=== PATIENT | female | born 1945 | race Caucasian/White ===

== ENCOUNTER → 2024-04-08 13:06 | Outpatient (REF) | payer MEDICARE, BC, SELFPAY | LOC: RAD 13:06 | PROVIDERS: ATTENDING PHYSICIAN Family Medicine | DX: Z13.6 Encounter for screening for cardiovascular disorders (principal) | CPT/HCPCS: 75571 ==

== ENCOUNTER → 2024-04-16 10:55 | Outpatient (REF) | payer MEDICARE, BC, SELFPAY | LOC: RAD 10:55 | PROVIDERS: ATTENDING PHYSICIAN Family Medicine | DX: I77.810 Thoracic aortic ectasia (principal) | CPT/HCPCS: 71260; Q9967 ==

== ENCOUNTER → 2024-08-16 08:27 | Outpatient (REF) | payer MEDICARE, BC, SELFPAY | LOC: WDC 08:27 | PROVIDERS: ATTENDING PHYSICIAN Family Medicine | DX: Z12.31 Encounter for screening mammogram for malignant neoplasm of breast (principal) | CPT/HCPCS: 77063; 77067 ==

== ENCOUNTER 2024-11-07 17:20 | Inpatient (IN) | payer MEDICARE, OTHER, SELFPAY ==
[2024-11-07] VITALS (21 sets, daily range): BP systolic 102–168; BP diastolic 58–93; PULSE 75; BMI 23.8
[2024-11-07 04:21] LABS: % Basophils 0.3 % (0-2); % Eosinophils 0.1 % (0-6); % Immature Granulocytes 0.5 % (0-0.5); % Lymphocytes 8.3 % (20.5-51.1); % Neutrophils 85.8 % (42.2-75.2); Absolute Immature Granulocytes 0.1 10^3/uL (0-0.05); Absolute Lymphocytes 0.8 10^3/uL (1.2-3.4); Absolute Monocytes 0.5 10^3/uL (0.1-0.6); Absolute Neutrophils 7.8 10^3/uL (1.4-6.5); Hematocrit 35.8 % (37.0-47.0); Hemoglobin 12.2 g/dL (12.0-16.0); Mean Corp Hgb Conc. 34.1 g/dL (33.0-37.0); Mean Corpuscular Hgb 31.9 pg (27.0-31.0); Mean Corpuscular Volume 93.7 fL (81.0-99.0); Mean Platelet Volume 8.5 fL (7.4-10.4); Nucleated Red Blood Cells % 0 %; Platelet Count 199 10^3/uL (130-400); Red Blood Cell Count 3.82 10^6/uL (4.20-5.40); Red Cell Dist. Width 13.2 % (11.5-14.5); White Blood Cell Count 9.2 10^3/uL (4.8-10.8)
[2024-11-07 04:43] LABS: ALT (SGPT) 20 U/L (0-35); AST (SGOT) 29 U/L (14-36); Albumin 4.1 g/dl (3.5-5.0); Alkaline Phosphatase 64 U/L (38-126); Blood Urea Nitrogen 20 mg/dl (7-17); Calcium 9.1 mg/dl (8.4-10.2); Carbon Dioxide 26 mmol/L (22-30); Chloride 99 mmol/L (98-107); Estimated Creatinine Clearance 49 ml/min; Glucose 118 mg/dl (70-99); Potassium 3.4 mmol/L (3.5-5.1); Sodium 133 mmol/L (135-145); Total Bilirubin 0.5 mg/dl (0.2-1.3); Total Protein 6.9 g/dl (6.3-8.2); eGFR > 60.00
[2024-11-07 05:08] LABS: Urine Albumin 1+ (Neg - Trace); Urine Bilirubin Negative (Negative); Urine Character Clear (Clear); Urine Color Yellow; Urine Glucose Negative (Negative); Urine Ketone 2+ (Negative); Urine Leukocyte Negative (Negative); Urine Nitrite Negative (Negative); Urine Occult Blood 1+ (Negative); Urine Urobilinogen Negative (Neg - 1+)
--- NOTE | 2024-11-07 05:15 | ED.GENMED ---
History of Present Illness
General
Chief Complaint: Abdominal Pain
Source: patient
Exam Limitations: none
Time Seen by Provider: 11/07/24 05:06
Nursing documentation reviewed up to this point in time: agreed with
History of Present Illness
History of Present Illness:
This is a 79-year-old woman who has history of of hypertension, asthma, obstructive sleep apnea, spinal stenosis. She presents with initially generalized lower abdominal pain that began around 9 PM last night, pain has persisted, comes and goes in
waves and is now primarily located right side of her abdomen. She admits to moderate nausea but has had no vomiting. She also notes urinary frequency, having had to get up and void several times throughout the night which is unlike her. She
denies hematuria, denies dysuria, denies back nor flank pain. She has not had a fever nor chills. She passed a normal bowel movement at 5 PM last night.
She has not taken anything for discomfort.
No history of similar episodes of pain.
Past History
Past History
ED Past Medical History: Asthma, HTN and Other (Obstructive sleep apnea, spinal stenosis)
ED Past Surgical History: (X 2), Gynecological (Bilateral salpingo-oophorectomy 2014) and Orthopedic (Bilateral hip replacements)
Social History
Tobacco: Non-smoker
Alcohol: None
Drug: None
Personal:
Living: alone
Employment: Retired
Family History
Family History: Other (Noncontributory)
Phy Exam
Physical Exam
Physical Exam:
GENERAL: 79-year-old woman appears her stated age, bright alert, pleasant, appears in no acute distress. Easily communicative.
EYE: anicteric
NECK: Supple, nontender, no meningismus, no significant adenopathy.
ENT: oral mucosa is moist. No rhinorrhea.
CARDIAC: Regular rate and rhythm. no murmur.
LUNGS: Clear breath sounds bilaterally, no acute respiratory distress, no wheezes/rales/rhonchi
ABDOMEN: Soft, nondistended, moderate tenderness right upper quadrant as well as mild tenderness right lower quadrant, no r/g, no cvat. Mildly hyperactive bowel sounds.
NEUROLOGICAL: Alert and oriented x3, no focal neuro deficits. Gait is steady.
SKIN: Warm and dry, normal color, skin intact. No rash.
MUSCULOSKELETAL: No C/C/E. peripheral pulses are full and equal b/l. No palpable tenderness.
PSYCH: Normal and appropriate interaction.
Course
Orders/Labs/Results
Orders:
Orders
11/07/24 04:07
Complete Blood Count/With Diff Urgent
Comprehensive Metabolic Panel Urgent
Lipase Urgent
Comment: ADD ON
11/07/24 04:52
Urinalysis Reflex To Culture Urgent
Date Specimen was Collected: 11/07/24
Time Specimen was Collected: 04:06
Urine Microscopic Reflex Cult Urgent
11/07/24 05:13
0.9% Sodium Chloride 1000 ml [Nss] 1,000 ml IV BOLUS
Ketorolac [Toradol] 15 mg IV NOW STA
Ondansetron Injectable [Zofran] 4 mg IV NOW STA
11/07/24 05:14
Add On- LAB Urgent
Tests Added?: lipase
11/07/24 05:16
CT Abd/pelvis W Iv Cont Urgent
Comment:
Reason For Exam: acute gen right sided abd pain, nausea
11/07/24 Breakfast
NPO
Allow oral meds: Yes
NPO Except Meds: Yes
Allow clear liquids: No
Sips of clear liquids: No
11/07/24 06:09
Lactic Acid Urgent
11/07/24 06:58
Iohexol [Omnipaque] See Protocol PO NOW STA
11/07/24 06:59
CT Abd/pel (oral only)-[facility] Only Urgent
Comment:
Reason For Exam: right sided abd pain-(?)appy
11/07/24 07:00
Iohexol [Omnipaque] 50 ml .ROUTE .STK-MED ONE
11/07/24 07:07
Ondansetron Injectable [Zofran] 4 mg IV Q6HPRN PRN
11/07/24 Lunch
NPO
Allow oral meds: Yes
NPO Except Meds: Yes
Allow clear liquids: Sips of Clears
NPO with Ice Chips: Yes
Sips of clear liquids: Yes
11/07/24 13:49
Ertapenem [Invanz] 1,000 mg 0.9% Sodium Chloride [Nss] 50 ml IV PRE PROCEDURE
Surgical Procedure As Directed
Surgical Procedure: open right colectomy
11/07/24 13:50
Anti-embolism (VAL) Hose As Directed
Type: Knee high
Pneumatic Compression Sleeves As Directed
Type: Knee high
DX Deep Vein Thrombosis Video Routine
11/07/24 14:05
Type+Screen Urgent
PTT Urgent
Prothrombin Time Urgent
11/07/24 14:48
Bupivacaine 0.5%Pf/Epinephrin [Sensorcain-Mpf Epi 0.5%-0.0005] 30 ml .ROUTE .STK-MED ONE
Dexamethasone Pf [Decadron] 10 mg .ROUTE .STK-MED ONE
11/07/24 14:53
Dexamethasone Sod Phosphate [Decadron] 20 mg .ROUTE .STK-MED ONE
Lidocaine HCl/Pf [Xylocaine-Mpf 1% Vial] 50 mg .ROUTE .STK-MED ONE
Ondansetron Injectable [Zofran] 4 mg .ROUTE .STK-MED ONE
Rocuronium [place] [Rocuronium] 100 mg .ROUTE .STK-MED ONE
11/07/24 14:55
Fentanyl Citrate/Pf [Sublimaze] 100 mcg .ROUTE .STK-MED ONE
Midazolam HCl [Versed] 2 mg .ROUTE .STK-MED ONE
11/07/24 15:06
Fentanyl Citrate/Pf [Sublimaze] 25 mcg IV PACU-Q5MPRN PRN
Fentanyl Citrate/Pf [Sublimaze] 50 mcg IV PACU-Q5MPRN PRN
Meperidine [Demerol] 12.5 mg IV PACU-Q5MPRN PRN
Ondansetron Injectable [Zofran] 4 mg IV PACU-ONCEPRN PRN
Prochlorperazine [Compazine] 5 mg IV PACU-ONCEPRN PRN
Notify MD As Directed
Notify physician if: for SDS patients with known or suspected sleep obstructive sleep apnea, monitor in the
PACU.
Notify MD for any apneic/desaturation episodes
O2 Therapy [RESP] Urgent
Titrate/Wean O2 to maintain O2 sat greater than (%): 92
Special Instructions: -Provide supplemental oxygen to achieve O2 sat of 92% or greater.
-After 15 min, may wean O2 and discontinue if patient is able to maintain O2 sat of 92%
or greater during recovery period.
If patient is a discharge home, without oxygen therapy, notify anestheiologist if
unable to maintain O2 SAT of 92% or greater on room air for MD clearance.
11/07/24 15:15
Normosol (Mult Electrolytes) [Normosol-R/Plasmalyte-A] 1,000 ml IV PER PROTOCOL
11/07/24 15:39
OR Pathology Routine
Pre-Operative Diagnosis: CECAL VOLVULUS
Post-Operative Diagnosis: CECAL VOLVULUS
Operative Procedure: OPEN RIGHT COLECTOMY
Surgeon: PORSHA
Circulating Nurse: [id number]
Specimen Type: RIGHT COLON
11/07/24 15:53
HYDROmorphone [Dilaudid] 1 mg .ROUTE .STK-MED ONE
11/07/24 16:52
Sugammadex Sodium [Bridion] 200 mg .ROUTE .STK-MED ONE
11/07/24 16:59
Ketorolac [Toradol] 30 mg .ROUTE .STK-MED ONE
11/07/24 17:10
Admit Patient As Directed
Co-Sign Provider:
Level of Care: Inpatient admission
Assign to:: Medical/Surgical
Physician / Group: porsha
Diagnosis: cecal volvulus; s/p right colectomy
Reason for Hospitalization: cecal volvulus; s/p right colectomy
Expected length of stay greater than two midnights?: Yes
ELOS- Estimated Length of Stay in days: 5
I certify the patient meets the requirements for IP care: Yes
Code Status As Directed
Resuscitation Status: Full Code
Activity As Directed
Activity Level: Out of Bed- Ad Franca
Anti-embolism (VAL) Hose As Directed
Type: Knee high
Catheter- Indwelling As Directed
Reason for insertion: Fabiola-Op Remove POD #2
Intake/ Output As Directed
Frequency: Per unit guidelines
Pneumatic Compression Sleeves As Directed
Type: Knee high
Vital Signs As Directed
Frequency: Post-operative guidelines
Weight As Directed
Frequency: Daily
PRN Pain Medication Management As Directed
May give lesser potent ordered pain med per pt: Yes
preference::
Protocol:: Medication orders for pain may be administered in a
manner that supports deferring to patient preference
when the pt is:
- Requesting an ordered lesser potent pain medication.
Least to most potent pain medications are defined
as: acetaminophen < NSAID < tramadol < opioids
(morphine, oxycodone, hydromorphone).
- Requesting a lesser dose of the same medication IF
ORDERED.
- Requesting a less intrusive route of administration
if both routes are prescribed by the provider (PO <
IV).
Rx Incentive Spirometry [RESP] Routine
Frequency: q1h while awake
# of times per hour: 10
DX Deep Vein Thrombosis Video Routine
11/07/24 17:12
HYDROmorphone [Dilaudid] 0.25 mg IV Q4HPRN PRN
HYDROmorphone [Dilaudid] 0.5 mg IV Q4HPRN PRN
11/07/24 17:15
Normosol (Mult Electrolytes) [Normosol-R/Plasmalyte-A] 1,000 ml IV 80 mls/hr
11/07/24 20:00
Acetaminophen [Tylenol] 650 mg PO Q4HWA
11/07/24 23:00
Ketorolac [Toradol] 10 mg IV Q6H
11/08/24 04:25
Basic Metabolic Panel IN AM
Complete Blood Count/With Diff IN AM
Magnesium IN AM
11/08/24 08:00
Amlodipine [Norvasc] 2.5 mg PO DAILY
Pantoprazole [Protonix] 40 mg PO DAILY
Abnormal Lab Results
11/07/24 11/07/24
04:07 04:52
RBC 3.82 L 10^6/uL
(4.20-5.40)
Hct 35.8 L %
(37.0-47.0)
MCH 31.9 H pg
(27.0-31.0)
Abs Immat Gran (auto) 0.1 H 10^3/uL
(0-0.05)
Absolute Neuts (auto) 7.8 H 10^3/uL
(1.4-6.5)
Absolute Lymphs (auto) 0.8 L 10^3/uL
(1.2-3.4)
Neutrophils % 85.8 H %
(42.2-75.2)
Lymphocytes % 8.3 L %
(20.5-51.1)
Sodium 133 L mmol/L
(135-145)
Potassium 3.4 L mmol/L
(3.5-5.1)
BUN 20 H mg/dl
(7-17)
Glucose 118 H mg/dl
(70-99)
Urine Ketones 2+ A
(Negative)
Ur Occult Blood Reflex 1+ A
(Negative)
Urine RBC 3-6 A /HPF
(0-2)
Urine Bacteria (Reflex) Few A
(Negative)
Urine Albumin (Reflex) 1+ A
(Neg - Trace)
11/07/24 04:07
11/07/24 04:07
Vital Signs
Initial and Last Documented VS:
Initial Vital Signs
Temp
97.4 F
11/07/24 03:59
Last Documented Vital Signs
Temp Pulse Resp BP Pulse Ox
98.4 F 69 18 154/82 95
11/08/24 23:00 11/08/24 23:00 11/08/24 23:00 11/08/24 23:00 11/08/24 23:00
MDM/Problems Addressed
Differential Diagnosis Includes:
Concern for acute cholecystitis, pancreatitis, small bowel obstruction, appendicitis, diverticulitis, other consideration is UTI, ureteric stone, pyelonephritis.
Will medicate for pain and nausea, initiate IV fluids.
Thus far labs are unremarkable. Will add lipase. Urinalysis is pending.
Will check CT abdomen pelvis with IV contrast.
Chronic conditions affecting care: HTN and Previous abdomnial surgery
*Radiology
Radiology exam reviewed: radiology read reviewed
*Pulse Oximetry
Patient hypoxic: no
*Critical Care Note
Total Time (30-74mins, 75-104mins- exclusive of procedures): Not Applicable
Update Note
Update Note:
07:00
Patient feeling improved but continues with some right mid to right lower quadrant abdominal pain.
Labs are reassuring. Normal white blood cell count. Normal chemistries. Normal lactic acid.
CAT scan shows constipation, there is some mesenteric inflammatory stranding right hemiabdomen concerning for focal inflammation/infection. Unclear if this is a focal enteritis versus I continued to have some concern for potential early
appendicitis.
Will continue to observe in the ED, serial abdominal exams.
Will await our radiologist official CAT scan report and in the meantime we will have the patient's start drinking oral contrast in preparation for repeat CAT scan if necessary.
11:[address] with oral contrast concerning for cecal volvulus.
Case d/w colorectal surgery.
to evaluate at bedside-plan for OR
ED Attending Note
-
Portions of this chart may have been created with voice recognition software.� Occasional wrong word or��sound alike� substitutions may have occurred due to the inherent limitations of voice recognition software.
Discharge Plan
Departure
Patient Disposition: OR
Date of Disposition: 11/07/24
Time of Disposition: 11:00
Admit to: OR
Admit to doctor: Porsha
Presentation/result/management discussed w/ accepting MD/DO: colorectal surgery
Discharge Problem:
acute right sided abdominal pain, Cecal volvulus
Interventions
Interventions:
*Risk Screen - Suicide Last Done: 11/07/24 03:59
*General Assessment Last Done: 11/07/24 03:59
*Neglect/Abuse Screening Last Done: 11/07/24 03:59
ED- Fall Risk Assessment Last Done: 11/07/24 03:59
*ED COVID-19 Vaccine History Last Done: 11/07/24 03:59
*Nursing Disposition Last Done: 11/07/24 14:47
AV-Wvifql-Mtenwzruip Assessment Last Done: 11/07/24 06:53
Discharge Date and Time
Discharge Date/Time: 11/07/24 14:49
[2024-11-07] MEDS: NSS 1000 IV (05:22)
[2024-11-07] MEDS: TORADOL 15 MG IV (05:22)
[2024-11-07 05:43] LABS: Urine Bacteria Few (Negative); Urine White Cell 0-2 /HPF (0-5)
[2024-11-07 05:46] LABS: Lipase 141 U/L (23-300)
[2024-11-07 06:32] LABS: Lactic Acid 0.7 mmol/L (0.7-2.0)
[2024-11-07] MEDS: OMNIPAQUE 50 ML PO (07:05)
--- NOTE | 2024-11-07 14:14 | EDRN ---
TEDS/ Sequential machine ordered from [facility]
[2024-11-07 14:37] LABS: INR 0.98; PT 13.5 Sec (11.4-14.6)
[2024-11-07 14:38] LABS: APTT 25.8 Sec (23.4-35.0)
--- NOTE | 2024-11-07 14:56 | W.PN.ADMIT ---
Progress Note - Admit
Progress Note - Admit
Full admit to be dictated.
Assessement/Plan: 79 yo F with R>L abdominal pain since yesterday evening with mild R abdominal tenderness on exam. CT scan most consistent with cecal volvulus with some mild inflammation and swirling of mesentery as well as displaced distended
mobile cecum. Interestingly, some oral contrast passes distal to area which may be consistent with partial obstruction. Discussed situation with patient, options discussed, and recommended a right colectomy to treat the issue and prevent worsening
of circumstances. Risks and benefits covered. Risks covered include but not limited to bleeding, infection, ureteral injury, bowel or solid organ injury, anastomotic leak or stricture, hernia, and anesthetic risks. She agrees to proceed. She
lives alone and has updated her daughters. She asks me to update them afterwards.
--- NOTE | 2024-11-07 17:07 | W.IMMPOSTOP ---
Addendum entered and electronically signed by King Da Silva MD 11/07/24 17:21:
Updated patient's daughter, Anamaria, via phone conversation.
Original Note:
Surgical Immed Post Op Note
-
Primary Surgeon: Sonido Da Silva MD
Assisting Surgeon: ANNA Hinson
Pre-op Diagnosis: cecal volvulus
Post-op Diagnosis: same
Procedure Performed: right colectomy
Anesthesia Type: general plus local
Specimen / Cultures: right colon
Estimated Blood Loss: 25 cc
Complications: no immediate
Operative Findings: cecal volvulus without upstream bowel dilation
Black in bladder.
Will send to med surg.
Sips, chips, and po meds ok.
[2024-11-07] MEDS: NORMOSOL-R/PLASMALYTE-A 1000 IV (17:20)
--- NOTE | 2024-11-07 21:10 | PTCARENOTE ---
Pt has midline incision [employer] with glue. IVF running at 80cc/hr and teds/scds on. Admission questions answered and full head to toe complete. Bed locked and in lowest position. Pt oriented to room and call miramontes. Care ongoing.
[2024-11-07] MEDS: TORADOL 10 MG IV (22:55)
[2024-11-08] MEDS: TYLENOL 650 MG PO ×5 (00:22→20:45)
[2024-11-08 03:05] VITALS: BP 137/72
[2024-11-08] MEDS: TYLENOL PO (04:54)
[2024-11-08] MEDS: TORADOL 10 MG IV ×4 (05:13→23:18)
[2024-11-08] MEDS: NORMOSOL-R/PLASMALYTE-A 1000 IV (05:24)
[2024-11-08 05:27] VITALS: BMI 22.7
[2024-11-08 06:20] LABS: % Basophils 0.1 % (0-2); % Immature Granulocytes 0.6 % (0-0.5); % Lymphocytes 10.1 % (20.5-51.1); % Monocytes 9.4 % (1.7-9.3); % Neutrophils 79.8 % (42.2-75.2); Absolute Immature Granulocytes 0.1 10^3/uL (0-0.05); Absolute Lymphocytes 1.1 10^3/uL (1.2-3.4); Absolute Neutrophils 8.6 10^3/uL (1.4-6.5); Hematocrit 32.4 % (37.0-47.0); Hemoglobin 11.3 g/dL (12.0-16.0); Mean Corp Hgb Conc. 34.9 g/dL (33.0-37.0); Mean Corpuscular Hgb 32.2 pg (27.0-31.0); Mean Corpuscular Volume 92.3 fL (81.0-99.0); Mean Platelet Volume 8.7 fL (7.4-10.4); Nucleated Red Blood Cells % 0 %; Platelet Count 204 10^3/uL (130-400); Red Blood Cell Count 3.51 10^6/uL (4.20-5.40); Red Cell Dist. Width 13.4 % (11.5-14.5); White Blood Cell Count 10.7 10^3/uL (4.8-10.8)
[2024-11-08 06:45] LABS: Blood Urea Nitrogen 18 mg/dl (7-17); Carbon Dioxide 20 mmol/L (22-30); Chloride 99 mmol/L (98-107); Estimated Creatinine Clearance 43 ml/min; Glucose 84 mg/dl (70-99); Magnesium 2.1 mg/dl (1.6-2.3); Potassium 3.7 mmol/L (3.5-5.1); Sodium 133 mmol/L (135-145); eGFR > 60.00
[2024-11-08 07:10] VITALS: BP 132/71
[2024-11-08] MEDS: NORVASC 2.5 MG PO (09:15)
[2024-11-08] MEDS: PROTONIX PO (09:16)
--- NOTE | 2024-11-08 09:27 | W.PN.CRS1 ---
Today's Communication / Plan
-
As below
Assessment/Plan
-
79-year-old female with PMH of asthma, HTN, ITZ, spinal stenosis who presented with abdominal pain and was found to have cecal volvulus on CT
POD 1 ex lap, right hemicolectomy
AFVSS
WBC 10.7, Hb 11.3 from 12.2, CR 0.8, UOP 900
� Advance to clears
� Continue pain control with Toradol, Tylenol, Dilaudid as needed
� Okay for DVT PPx with Lovenox
� DC Black, monitor for void
� Continue home meds
Subjective Data
Subjective Data
Date of Service: November 08, 2024
No overnight events.
Pain controlled.
Denies nausea/vomiting.
-flatus -BMs + Black
Objective Data
-
Vital Signs
Temp Pulse Resp BP Pulse Ox
98.9 F 66 16 132/71 98
11/08/24 07:10 11/08/24 07:10 11/08/24 07:10 11/08/24 07:10 11/08/24 07:10
Intake & Output
11/07/24 11/08/24 11/09/24
06:59 06:59 06:59
Intake Total 170 / 170
Output Total 900 / 900
Balance -730 / -730
Intake:
Oral fluids 120 / 120
IV fluids (Total) 50 / 50
Normosol 50 / 50
Output:
Urine, Black 900 / 900
Lab Results
11/08/24 04:25
11/08/24 04:25
Physical Exam
-
General: No Acute Distress and AOx3
HEENT: Grossly Normal
Abdomen: Soft, Non Distended, Tender (Appropriately tender near midline incision), No Guarding and No Rebound
Skin: Warm and Dry
Wound: No Signs of Infection, No Skin Erythema and Other (Midline incision well-approximated without erythema or drainage, covered in Dermabond)
--- NOTE | 2024-11-08 10:41 | CM ---
manager shop reviewed patient's chart and met with patient and patient states she lives alone in a 2 story home, patient is independent with adl's and ambulation, no dme, patient drives. Plan is to home when stable, patient asked about visiting
nurses and options reviewed and [facility] liaison notified.
Pharmacy: [facility] in [place]
Plan; Home with [facility] when stable.
[2024-11-08 11:10] VITALS: BP 158/85
--- NOTE | 2024-11-08 12:10 | VNURNOTE ---
Home Health Liaison met with patient at bedside to discuss [facility] nurse/therapy, visits, schedule and homebound status. Patient is agreeable and understands that visits at home will be 2-3 x per week to assess and teach medical management. Patient
is aware that [facility] will contact them for start of care in 1-2 days after discharge from .
[facility] referral completed in [facility].
[2024-11-08] MEDS: PROTONIX 40 MG PO (12:25)
[2024-11-08 15:40] VITALS: BP 159/94
[2024-11-08] MEDS: LOVENOX 40 MG SC (17:42)
[2024-11-08 23:00] VITALS: BP 154/82
[2024-11-09] MEDS: TYLENOL PO (00:06)
[2024-11-09] MEDS: TORADOL 10 MG IV (04:51)
[2024-11-09] MEDS: TYLENOL 650 MG PO ×3 (04:51→12:16)
[2024-11-09 06:00] VITALS: BMI 22.5
[2024-11-09 07:00] VITALS: BP 154/89
[2024-11-09] MEDS: PROTONIX 40 MG PO (09:04)
[2024-11-09] MEDS: NORVASC 2.5 MG PO (09:04)
--- NOTE | 2024-11-09 11:57 | W.PN.CRS1 ---
Today's Communication / Plan
-
low residue diet
possible d/c later today
Assessment/Plan
-
POD#2 right colectomy
AFVSS
no labs today
� Advance to low residue.
- D/C IVfs.
� Continue pain control with Toradol, Tylenol, Dilaudid as needed
� Okay for DVT PPx with Lovenox
� Continue home meds
- Possible d/c later today if tolerating a low residue diet.
Subjective Data
Procedure
11/07/24- right colectomy
Subjective Data
Date of Service: November 09, 2024
Patient states she feels well. She has bowel movements. Her pain is controlled. She tolerated fulls. She denies nausea or vomiting.
Objective Data
-
Vital Signs
Temp Pulse Resp BP Pulse Ox
98 F 63 18 154/89 99
11/09/24 07:00 11/09/24 07:00 11/09/24 07:00 11/09/24 07:00 11/09/24 07:00
Intake & Output
11/08/24 11/09/24 11/10/24
06:59 06:59 06:59
Intake Total 170 / 170 2260 / 2260
Output Total 900 / 900 300 / 300
Balance -730 / -730 1959 / 1960
Intake:
Oral fluids 120 / 120 1860 / 1860
IV fluids (Total) 50 / 50 400 / 400
Normosol 50 / 50
Output:
Urine, Black 900 / 900 300 / 300
Other:
Number of approximated MODERATE 2
amounts of urine
Lab Results
11/08/24 04:25
11/08/24 04:25
Physical Exam
-
General: No Acute Distress and AOx3
Abdomen: Soft, Non Distended and Non Tender
Skin: Warm and Dry
[2024-11-09 12:00] VITALS: BP 154/79
--- NOTE | 2024-11-09 12:06 | W.DS.TRANS ---
DC Summary - [employer]
-
Discharge Instructions:
Discharge Diagnosis/Procedures cecal volvulus
Diet Low Residue
Activity No strenuous activity
Additional Activity No lifting over 10lbs (gallon of milk)
Driving Restrictions Not until seen by your Dr
Bathing Restrictions OK to Shower
Wound Care Allow glue to naturally fall off.
Instructions: Low-fiber diet
Stand-Alone Forms:
Changes to Home Medications: No
Discharge Medications:
DC Medications w/original date entered in [employer]
Lactobac no.2-Bifidobac no.1-S. thermo 112.5 billion cell capsule (Visbiome) 1 cap PO DAILY 11/07/24
amino acids (Amino Acid capsule) 1 cap PO DAILY 11/07/24
amlodipine 2.5 mg tablet (Norvasc) 2.5 mg PO DAILY 11/07/24
ascorbic acid 30 mg-collagen, hydrolyzed 833.3 mg tablet (Collagen Skin Renewal) 1 tab PO DAILY 11/07/24
berberine chloride 500 mg capsule 500 mg PO DAILY 11/07/24
calcium carbonate 500 mg PO DAILY 11/07/24
cholecalciferol (vitamin D3) 125 mcg (5,000 unit) tablet (Vitamin D3) 125 mcg PO DAILY 11/07/24
creatine monohydrate 1 ea PO DAILY 11/07/24
omega-3 fatty acids 1,000 mg PO DAILY 11/07/24
therapeutic multivitamin 1 tab PO DAILY 11/07/24
vit C 250 mg-vit E 90 mg-zinc 40 mg-copper 1 bm-wrwyah-oepdol capsule 1 tab PO DAILY 11/07/24
vitamins A,C,J-bzaa-rpxeip 2,148 mcg-113 mg-45 mg-17.4 mg tablet (PreserVision AREDS) 1 tab PO DAILY 11/07/24
Home Medication Changes
Pending Results: Yes
Additional Pending Results:
OR pathology
[2024-11-09] MEDS: TORADOL IV (12:16)
== END 2024-11-09 13:58 | disposition home health service (06) | DRG 331 ==
LOC: 2 SOUTH 17:20
PROVIDERS: Physician Assistant; ADMITTING PHYSICIAN Surgery; EMERGENCY PHYSICIAN Emergency Medicine
PROC: 3E0T3BZ Introduction of Anesthetic Agent into Peripheral Nerves and Plexi, Percutaneous Approach (ICD-10-PCS; 2024-11-07)
PROC: 3E0T33Z Introduction of Anti-inflammatory into Peripheral Nerves and Plexi, Percutaneous Approach (ICD-10-PCS; 2024-11-07)
PROC: 5A09357 Assistance with Respiratory Ventilation, Less than 24 Consecutive Hours, Continuous Positive Airway Pressure (ICD-10-PCS; 2024-11-07)
PROC: 0DTF0ZZ Resection of Right Large Intestine, Open Approach (ICD-10-PCS; 2024-11-07)
DX: K56.2 Volvulus (principal); I10 Essential (primary) hypertension; E87.6 Hypokalemia; J45.909 Unspecified asthma, uncomplicated; G47.33 Obstructive sleep apnea (adult) (pediatric); R35.0 Frequency of micturition; Z60.2 Problems related to living alone; Z96.643 Presence of artificial hip joint, bilateral; Z90.722 Acquired absence of ovaries, bilateral; Z90.79 Acquired absence of other genital organ(s); Z90.49 Acquired absence of other specified parts of digestive tract
CPT/HCPCS: 88307; 74176; 74177; 80048; 80053; 81003; 81015; 83605; 83690; 83735; 85025; 85610; 85730; 86850; 86900; 86901; 94660; 96374; 99285; C1776; J1335; Q9967

== ENCOUNTER → 2025-03-24 13:48 | Outpatient (REF) | payer MEDICARE, OTHER, SELFPAY | LOC: RAD 13:48 | PROVIDERS: ATTENDING PHYSICIAN Physical Medicine & Rehabilitation; FAMILY PHYSICIAN Family Medicine | DX: Z78.0 Asymptomatic menopausal state (principal) | CPT/HCPCS: 77080 ==

== ENCOUNTER → 2025-06-04 07:03 | Outpatient (REF) | payer MEDICARE, OTHER, SELFPAY ==
[2025-06-04 07:47] LABS: Hematocrit 37.6 % (37.0-47.0); Hemoglobin 12.8 g/dL (12.0-16.0); Mean Corp Hgb Conc. 34.0 g/dL (33.0-37.0); Mean Corpuscular Volume 90.6 fL (81.0-99.0); Nucleated Red Blood Cells % 0 %; Platelet Count 217 10^3/uL (130-400); Red Cell Dist. Width 13.3 % (11.5-14.5)
[2025-06-04 08:12] LABS: ALT (SGPT) 25 U/L (0-35); AST (SGOT) 35 U/L (14-36); Albumin 4.4 g/dl (3.5-5.0); Alkaline Phosphatase 47 U/L (38-126); Blood Urea Nitrogen 16 mg/dl (7-17); Calcium 9.7 mg/dl (8.4-10.2); Carbon Dioxide 28 mmol/L (22-30); Chloride 99 mmol/L (98-107); Glucose 91 mg/dl (70-99); Iron 89 ug/dl (37-170); Potassium 4.5 mmol/L (3.5-5.1); Sodium 131 mmol/L (135-145); Total Protein 7.5 g/dl (6.3-8.2); Very Low Density Lipoprotein 10 mg/dl (0-30); eGFR > 60.00
[2025-06-04 08:21] LABS: Total Iron Binding Capacity 317 ug/dl (265-497)
[2025-06-04 08:48] LABS: HDL Cholesterol 136 mg/dl; LDL Cholesterol, Calculated 196 mg/dl; Vitamin D, 25-OH*** 79.3 ng/mL (30-80)
[2025-06-04 08:59] LABS: Ferritin 55.0 ng/ml (11.1-264.0)
[2025-06-04 09:02] LABS: TSH 1.64 uIU/ml (0.47-4.68)
[2025-06-04 09:21] LABS: Vitamin B12 > 1000 pg/ml (239-931)
== END ==
LOC: REG 07:03
PROVIDERS: ATTENDING PHYSICIAN Family Medicine
DX: R00.2 Palpitations (principal); R53.83 Other fatigue; E78.2 Mixed hyperlipidemia; I10 Essential (primary) hypertension; D51.8 Other vitamin B12 deficiency anemias; D51.9 Vitamin B12 deficiency anemia, unspecified
CPT/HCPCS: 36415; 80053; 80061; 82306; 82607; 82728; 83540; 83550; 84443; 85025

== ENCOUNTER → 2025-06-10 10:03 | Outpatient (REF) | payer MEDICARE, OTHER, SELFPAY ==
[2025-06-12 15:10] LABS: Lyme Antibody Screen, EIA Presump. Positive (Negative)
[2025-06-17 16:31] LABS: Lyme Ab Western Blot IgG Negative (Negative); Lyme Ab Western Blot IgM Negative (Negative)
== END ==
LOC: REG 10:03
PROVIDERS: ATTENDING PHYSICIAN Family Medicine
DX: R53.83 Other fatigue (principal)
CPT/HCPCS: 36415; 86617; 86618; 86753

== ENCOUNTER → 2025-06-25 17:20 | Outpatient (REF) | payer MEDICARE, OTHER, SELFPAY | LOC: RAD 17:20 | PROVIDERS: ATTENDING PHYSICIAN Family Medicine | DX: R05.1 Acute cough (principal) | CPT/HCPCS: 71046 ==

== ENCOUNTER → 2025-08-18 13:59 | Outpatient (REF) | payer MEDICARE, OTHER, SELFPAY | LOC: WDC 13:59 | PROVIDERS: ATTENDING PHYSICIAN Family Medicine | DX: Z12.31 Encounter for screening mammogram for malignant neoplasm of breast (principal) | CPT/HCPCS: 77063; 77067 ==